=== PATIENT | male | born 1945 | race Caucasian/White ===

== ENCOUNTER → 2017-12-23 | Outpatient (CLI) | payer MEDICARE ==
[~2017-12-23] MED LIST: ASPIR-LOW81 MG; DIOVAN320 MG; LIPITOR40 MG; TOPROL XL25 MG; VITAMIN D2000 IU; ZETIA10 MG
== END | disposition home or self-care (01) ==
LOC: RESCLI 07:45
DX: I25.810 Atherosclerosis of coronary artery bypass graft(s) without angina pectoris (principal); H40.10X0 Unspecified open-angle glaucoma, stage unspecified; N40.0 Benign prostatic hyperplasia without lower urinary tract symptoms; E78.5 Hyperlipidemia, unspecified; I10 Essential (primary) hypertension; H04.123 Dry eye syndrome of bilateral lacrimal glands; R06.09 Other forms of dyspnea

== ENCOUNTER → 2017-12-24 | Outpatient (CLI) | payer MEDICARE | END | disposition home or self-care (01) | LOC: RAD 09:32 | DX: R09.89 Other specified symptoms and signs involving the circulatory and respiratory systems (principal); R06.09 Other forms of dyspnea; R06.02 Shortness of breath; R05 Cough ==

== ENCOUNTER → 2018-03-03 | Outpatient (CLI) | payer MEDICARE | END | disposition home or self-care (01) | LOC: RESCLI 00:26 | DX: E78.5 Hyperlipidemia, unspecified (principal); I25.810 Atherosclerosis of coronary artery bypass graft(s) without angina pectoris; N40.0 Benign prostatic hyperplasia without lower urinary tract symptoms; I10 Essential (primary) hypertension; H40.10X0 Unspecified open-angle glaucoma, stage unspecified; H04.123 Dry eye syndrome of bilateral lacrimal glands; Z79.899 Other long term (current) drug therapy; Z87.891 Personal history of nicotine dependence ==

== ENCOUNTER → 2018-06-16 | Outpatient (CLI) | payer MEDICARE | END | disposition home or self-care (01) | LOC: RESCLI 03:03 | DX: I25.810 Atherosclerosis of coronary artery bypass graft(s) without angina pectoris (principal); E78.5 Hyperlipidemia, unspecified; I10 Essential (primary) hypertension; H40.10X0 Unspecified open-angle glaucoma, stage unspecified; N40.0 Benign prostatic hyperplasia without lower urinary tract symptoms; H04.123 Dry eye syndrome of bilateral lacrimal glands; E80.6 Other disorders of bilirubin metabolism; Z79.82 Long term (current) use of aspirin; Z79.899 Other long term (current) drug therapy; Z90.49 Acquired absence of other specified parts of digestive tract; Z88.8 Allergy status to other drugs, medicaments and biological substances ==

== ENCOUNTER → 2018-08-25 | Outpatient (CLI) | payer MEDICARE | END | disposition home or self-care (01) | LOC: RAD 09:07 | DX: R05 Cough (principal); I25.10 Atherosclerotic heart disease of native coronary artery without angina pectoris; Z87.891 Personal history of nicotine dependence ==

== ENCOUNTER → 2018-11-25 | Outpatient (CLI) | payer MEDICARE ==
--- NOTE | ~2018-11-25 | PF ---
[place], [place] PULMONARY FUNCTION TEST [id number] UN[facility] #: [id number] ROOM: DOCTOR: VALERY HOFFMAN MD,RTEY BIRTHDATE: [birth year] DOS: 11/25/2018 The testing was done ordered by Dr. Mason Pope. HISTORY: The patient is recorded as a 73-year-old, outpatient, male. Height was recorded 66 inches, weight of 160 pounds, BMI 25.8. Testing done for assessment of diagnosis noted as ____ was reported with symptoms of shortness of breath ___ nonproductive cough, rare wheezing. Tobacco user noted for 10 years, 1 pack of cigarettes per day that was discontinued 40 years ago. SPIROMETRY: The FVC of 2.38 liters, 72% predicted value. The FEV1 of 1.99 liters, 78% predicted value. The ratio of FEV1/FVC is 84%. No changes noted in FEV1 and FVC post-bronchodilator of any significance. Flow volume loop was suggestive of minimal obstructive airway pattern. The lung volume, thoracic gas volume recorded as 97%, residual volume 126%, total lung capacity of 83%. RV/TLC ratio was noted at 150%. Lung diffusion noted 75%, peak air resistance, passive conductance was noted as normal. FINAL IMPRESSION: Current test with the patient noted a nonspecific reduction of FEV1/FVC, with possibility of very mild obstructive airway disease cannot be excluded. Clinical correlation would be advised with the history and radiology data. TREY RASMUSSEN MD CM:PFREPORT:PULMONARY FUNCTION TEST [id number] TREY HOFFMAN MD
== END | disposition home or self-care (01) ==
LOC: CP 07:19
DX: I25.810 Atherosclerosis of coronary artery bypass graft(s) without angina pectoris (principal); E78.5 Hyperlipidemia, unspecified; I10 Essential (primary) hypertension; E80.6 Other disorders of bilirubin metabolism

== ENCOUNTER → 2019-03-31 | Outpatient (CLI) | payer MEDICARE | END | disposition home or self-care (01) | LOC: RESCLI 10:03 | DX: Z23 Encounter for immunization (principal); I10 Essential (primary) hypertension; E78.5 Hyperlipidemia, unspecified; Z95.1 Presence of aortocoronary bypass graft; Z90.49 Acquired absence of other specified parts of digestive tract; Z87.891 Personal history of nicotine dependence ==

== ENCOUNTER → 2020-01-02 | Outpatient (CLI) | payer MEDICARE | END | disposition home or self-care (01) | LOC: RESCLI 05:47 | DX: I10 Essential (primary) hypertension (principal); E78.5 Hyperlipidemia, unspecified; H40.10X0 Unspecified open-angle glaucoma, stage unspecified; H04.123 Dry eye syndrome of bilateral lacrimal glands; I25.810 Atherosclerosis of coronary artery bypass graft(s) without angina pectoris; Z79.84 Long term (current) use of oral hypoglycemic drugs; Z79.899 Other long term (current) drug therapy; Z90.49 Acquired absence of other specified parts of digestive tract; Z95.1 Presence of aortocoronary bypass graft; Z87.891 Personal history of nicotine dependence; Z88.8 Allergy status to other drugs, medicaments and biological substances ==

== ENCOUNTER → 2020-09-06 | Outpatient (CLI) | payer MEDICARE | END | disposition home or self-care (01) | LOC: RESCLI 00:50 | PROVIDERS: ATTEND Psychiatry & Neurology Neurology | DX: I25.810 Atherosclerosis of coronary artery bypass graft(s) without angina pectoris (principal); H04.123 Dry eye syndrome of bilateral lacrimal glands; I10 Essential (primary) hypertension; N40.0 Benign prostatic hyperplasia without lower urinary tract symptoms; E78.5 Hyperlipidemia, unspecified; H40.10X0 Unspecified open-angle glaucoma, stage unspecified; Z79.899 Other long term (current) drug therapy; Z90.49 Acquired absence of other specified parts of digestive tract; Z95.1 Presence of aortocoronary bypass graft; Z98.890 Other specified postprocedural states; Z87.891 Personal history of nicotine dependence; Z79.82 Long term (current) use of aspirin; Z88.8 Allergy status to other drugs, medicaments and biological substances ==

== ENCOUNTER → 2020-12-27 | Outpatient (CLI) | payer MEDICARE ==
[2020-12-27 09:03] LABS: BASO % 0.1 % (0.0-1.0); EOS # 0.2 10*3/uL (0.0-0.4); HEMATOCRIT 46.6 % (42.0-52.0); LYMPH # 2.1 10*3/uL (1.3-4.4); LYMPH % 29.1 % (27.0-41.0); MEAN CELL VOLUME 87.8 fl (80.0-94.0); MEAN CORPUSCULAR HGB 27.9 pg (27.0-31.0); MEAN CORPUSCULAR HGB CONC 31.8 g/dl (33.0-37.0); MEAN PLATELET VOLUME 10.3 fl (9.6-12.3); MONO # 0.5 10*3/uL (0.1-1.0); MONO % 6.6 % (3.0-9.0); NEUT # 4.3 10*3/uL (2.3-7.9); NEUT % 60.9 % (47.0-73.0); PLATELET COUNT AUTOMATED 262 10*3/uL (130-400); RED BLOOD COUNT 5.31 10*6/uL (4.50-5.90); RED CELL DISTRI WIDTH 13.4 % (0-14.5); WHITE BLOOD COUNT 7.1 10*3/uL (4.8-10.8)
[2020-12-27 09:20] LABS: ALBUMIN 3.8 gm/dl (3.1-4.5); ALKALINE PHOSPHATASE 113 U/L (45-117); BUN 10 mg/dl (7-24); CHLORIDE 108 mmol/L (98-107); CHOLESTEROL 116 mg/dL (<200); CREATININE 0.92 mg/dL (0.70-1.30); LDL CHOLESTEROL 47 mg/dL (9-159); POTASSIUM 4.4 mmol/L (3.5-5.1); SGOT/AST 25 IU/L (3-35); SGPT/ALT 25 U/L (12-78); SODIUM 137 mmol/L (136-145); TOTAL PROTEIN 7.9 gm/dL (6.4-8.2); TRIGLYCERIDES 83 mg/dl (<150)
== END | disposition home or self-care (01) ==
LOC: LAB 08:36
PROVIDERS: Internal Medicine; ATTEND Internal Medicine
DX: I10 Essential (primary) hypertension (principal); E78.5 Hyperlipidemia, unspecified; R06.02 Shortness of breath; Z95.1 Presence of aortocoronary bypass graft

== ENCOUNTER → 2021-05-09 | Outpatient (CLI) | payer MEDICARE | END | disposition home or self-care (01) | LOC: RAD 10:21 | PROVIDERS: ATTEND Internal Medicine | DX: M25.531 Pain in right wrist (principal) ==

== ENCOUNTER → 2024-10-19 | Outpatient (CLI) | payer MEDICARE | END | disposition home or self-care (01) | LOC: RESCLI 01:30 | PROVIDERS: ATTEND Student in an Organized Health Care Education/Training Program | DX: H40.10X0 Unspecified open-angle glaucoma, stage unspecified (principal); I10 Essential (primary) hypertension; H04.123 Dry eye syndrome of bilateral lacrimal glands; I25.10 Atherosclerotic heart disease of native coronary artery without angina pectoris; N40.0 Benign prostatic hyperplasia without lower urinary tract symptoms; E78.5 Hyperlipidemia, unspecified; Z79.899 Other long term (current) drug therapy; Z98.890 Other specified postprocedural states; Z88.8 Allergy status to other drugs, medicaments and biological substances ==